=== PATIENT | male | born 1960 | race Caucasian/White ===

== ENCOUNTER 2018-01-15 15:53 | Emergency (ER) | payer BC ==
[2018-01-15] MEDS ORDERED: Ibuprofen TAB* 600 MG PO ONE (16:19)
[2018-01-15 16:23] VITALS: BP 134/88
--- NOTE | 2018-01-15 16:24 | UC ---
Shoulder Pain HPI - HPI Summary HPI Summary: Patient fell off a bleacher hitting the anterior aspect of the left shoulder about 24 hours ago, has significant pain, swellin over the mid left clavicle. ROM limited in shoulder. - History of Current Complaint Stated Complaint: LFT SHOULDER INJURY Hx Obtained From: Patient Onset/Duration: Sudden Onset, Lasting Days - 1 Timing: Constant Severity Initially: Severe Severity Currently: Moderate Location Of Pain: Is Diffuse Character: Sharp, Throbbing, Stiffness Aggravating Factor(s): Movement Alleviating Factor(s): Nothing Associated Signs And Symptoms: Positive: Swelling - Allergies/Home Medications Allergies/Adverse Reactions: Allergies Allergy/AdvReac Type Severity Reaction Status Date / Time No Known Allergies Allergy Verified 01/15/18 16:23 Home Medications: Home Medications Olmesartan/Hydrochlorothiazide [Benicar Hct 20-12.5 mg] 1 tab PO DAILY 01/15/18 [History Confirmed 01/15/18] metFORMIN* [Glucophage 500 MG TAB *] 500 mg PO BID 01/15/18 [History Confirmed 01/15/18] PMH/Surg Hx/FS Hx/Imm Hx Previously Healthy: Yes - Family History Family History: obesity Review of Systems Constitutional: Negative Skin: Negative Eyes: Negative ENT: Negative Respiratory: Negative Cardiovascular: Negative Gastrointestinal: Negative Genitourinary: Negative Motor: Negative Neurovascular: Negative Musculoskeletal: Arthralgia, Decreased ROM, Edema, Myalgia Neurological: Negative Psychological: Negative Is Patient Immunocompromised?: No All Other Systems Reviewed And Are Negative: Yes Physical Exam Triage Information Reviewed: Yes Appearance: Well-Appearing, Well-Nourished, Pain Distress Vital Signs Reviewed: Yes Eye Exam: Normal ENT Exam: Normal Dental Exam: Normal Neck: Positive: Supple, No Lymphadenopathy, Tenderness @ - over the left clavical region Respiratory Exam: Normal Respiratory: Positive: Chest non-tender, Lungs clear, Normal breath sounds Cardiovascular Exam: Normal Cardiovascular: Positive: RRR, No Murmur, Pulses Normal Abdominal Exam: Normal Abdomen Description: Positive: Nontender, No Organomegaly, Soft Musculoskeletal: Positive: Strength Intact - frip is equal, ROM Limited @ - in left shoulder all planes of motion, Edema @ - mid left clavicle Neurological Exam: Normal Psychological Exam: Normal Skin Exam: Normal Shoulder Course/Dx - Course Course Of Treatment: hx obtained, exam performed ,meds reviewed, xray obtained. - Differential Dx/Diagnosis Differential Diagnosis/HQI/PQRI: Contusion, Fracture (Closed), Sprain, Strain Provider Diagnoses: Moderately communited fracture of left clavical - Physician Notification/Consults Discussed Patient Care With: Ciara Kraft - Receommendation from Dr Kraft: sling and call office in morning to be seen, possible surgical repair Discharge - Sign-Out/Discharge Documenting (check all that apply): Patient Departure All imaging exams completed and their final reports reviewed: Yes - Discharge Plan Condition: Stable Disposition: HOME Patient Education Materials: Clavicle Fracture (ED) Referrals: Yung Harris DO [Primary Care Provider] - Ciara Kraft MD [Medical Doctor] - Additional Instructions: 1. remain in sling and no lifting 2. USe ibuprofen for pain and swelling 3. USe the NORCO for increased pain or at night time. 4. Call Dr Kraft's office first thing in morning to follow up. - Billing Disposition and Condition Condition: STABLE Disposition: Home
--- NOTE | 2018-01-15 16:44 | RAD ---
Indication: Fell forward landing on LEFT shoulder. Pain/deformity. Assess LEFT clavicle. Comparison: None. Technique: AP and cephalad oblique views LEFT clavicle. REPORT AND IMPRESSION: #. Moderately comminuted LEFT clavicle fracture with up to 2.7 cm inferior displacement. Overlying soft tissue swelling without conspicuous subcutaneous emphysema. Normal sternoclavicular and acromioclavicular joint alignment.
[2018-01-15] MEDS ORDERED: HYDROcodone/ACETAMIN 5-325 MG* 1 TAB PO ONE (16:59)
== END 2018-01-15 17:15 | disposition home or self-care (01) ==
LOC: UCCORT 15:53
DX: S42.002A Fracture of unspecified part of left clavicle, initial encounter for closed fracture (principal); W17.89XA Other fall from one level to another, initial encounter; Y93.89 Activity, other specified; Y92.89 Other specified places as the place of occurrence of the external cause
CPT/HCPCS: 99203; A9270-GY; G0463